=== PATIENT | female | born 1985 | race Caucasian/White ===

== ENCOUNTER 2018-01-19 02:09 | Emergency (ER) | payer OTHER ==
[~2018-01-19] VITALS: Ht 160 cm; Wt 54.4 kg
[~2018-01-19 02:09] MED LIST: ACYCLOVIR 400400 MG PO; FLEXERIL PO; HYDROCODON-ACE1 EAC8 PO; IRON325 M1 PO; NORCO 5-325 TA1 EAC1 PO; WOMEN'S DAILY1 EACH PO
[2018-01-19 02:46] LABS: ABSOLUTE EOSINOPHILS 0.2 thou/uL (0.0-0.7); ABSOLUTE LYMPHOCYTES 2.7 thou/uL (0.8-5.3); ABSOLUTE MONOCYTES 0.8 thou/uL (0.0-1.2); ABSOLUTE NEUTROPHILS 5.8 thou/uL (1.6-8.1); BASOPHILS 0.3 %; EOSINOPHILS 2.5 %; HEMATOCRIT 36.5 % (37.0-47.0); HEMOGLOBIN 12.5 gm/dL (12.0-15.0); LYMPHOCYTES 28.1 %; MCH 32.1 pg (26.0-34.0); MCHC 34.3 g/dL (28.0-37.0); MCV 93.5 fL (80.0-100.0); MONOCYTES 8.7 %; MPV 6.9 fl. (7.2-11.1); NUCLEATED RBCS 0 /100WBC; PLATELET COUNT* 354 thou/uL (150-400); POLYS 60.4 %; RBC 3.91 mil/uL (4.20-5.00); RDW-CV 12.6 % (10.5-14.5); WBC 9.6 thou/uL (4.0-11.0)
[2018-01-19 02:48] LABS: URINE BILIRUBIN NEGATIVE (Negative); URINE BLOOD 2+ (Negative); URINE CLARITY CLEAR; URINE COLOR YELLOW; URINE GLUCOSE-RANDOM NEGATIVE (Negative); URINE KETONES NEGATIVE (Negative); URINE LEUKOCYTES-REFLEX NEGATIVE (Negative); URINE NITRITE-REFLEX NEGATIVE (Negative); URINE PROTEIN 1+ (Negative); URINE SPECIFIC GRAVITY >= 1.030 (1.005-1.030); URINE UROBILINOGEN 0.2 E.U./dl (0.2-1.0)
[2018-01-19 03:01] LABS: CASTS None Seen /LPF (None Seen); CRYSTALS None Seen /LPF (None Seen); MUCUS >6 Heavy strn/LPF (None Seen); SQUAMOUS 0-3 Few /LPF (0-3); TRANSITIONAL EPITHEL CELL 0-3 Few /LPF (None Seen); URINE WBC-REFLEX None Seen /HPF (0-5)
[2018-01-19 03:10] LABS: CREATININE 0.8 mg/dL (0.6-1.3); POTASSIUM 3.5 mmol/L (3.5-5.1)
[2018-01-19 03:15] LABS: ALBUMIN 3.8 g/dL (3.4-5.0); TOTAL BILIRUBIN 0.3 mg/dL (<0.1-1.0)
[2018-01-19] MEDS ORDERED: FLAGYL500 MG PO (03:37)
[2018-01-19] MEDS ORDERED: HYDROCODON-ACE1 EAC7 PO (03:37)
[2018-01-19 03:48] VITALS: BP 99/45
== END 2018-01-19 03:49 | disposition home or self-care (01) ==
LOC: M.ERS 02:09
PROVIDERS: Emergency Medicine
DX: N76.0 Acute vaginitis (principal); B96.89 Other specified bacterial agents as the cause of diseases classified elsewhere; F17.200 Nicotine dependence, unspecified, uncomplicated; Z88.1 Allergy status to other antibiotic agents

== ENCOUNTER 2018-06-18 02:26 | Emergency (ER) | payer OTHER ==
[~2018-06-18] VITALS: Ht 160 cm; Wt 54.4 kg
[~2018-06-18 02:26] MED LIST changes: +FLAGYL500 MG PO; +HYDROCODON-ACE1 EAC7 PO
[2018-06-18 04:29] VITALS: BP 124/85
== END 2018-06-18 04:34 | disposition home or self-care (01) ==
LOC: M.ERS 02:26
DX: R51 Headache (principal); F10.129 Alcohol abuse with intoxication, unspecified